=== PATIENT | female | born 1960 | race Two or more races ===

== ENCOUNTER 2018-03-02 21:33 | Emergency (ER) | payer MEDICAID ==
[~2018-03-02] VITALS: Ht 160 cm; Wt 96.8 kg
[~2018-03-02 21:33] MED LIST: MONT10TA9 PO; [UNRECOGNIZED DRUG - CODE] PO
[2018-03-02] MEDS ORDERED: ONDANSETRON ODT 4 MG PO ONE (22:30)
[2018-03-02] MEDS ORDERED: PROMETHAZINE 25 MG/ML, 1ML ONE (22:30)
[2018-03-02] MEDS ORDERED: ONDANSETRON ODT 4 MG ONE (22:30)
[2018-03-02] MEDS ORDERED: PROMETHAZINE 25 MG/ML, 1ML IM ONE (22:30)
[2018-03-02 22:51] LABS: BASOPHILS # (AUTO) 0.06 x10^3/uL (0-0.1); BASOPHILS % (AUTO) 1 % (0-1); EOSINOPHILS # (AUTO) 0.09 x10^3/uL (0-0.4); EOSINOPHILS % (AUTO) 1 % (1-7); LYMPHOCYTES % (AUTO) 16 % (22-44); MD NO; MEAN CORPUSCULAR HEMOGLOBIN 29.9 pg (27.0-34.8); MEAN CORPUSCULAR HGB CONC 33.6 g/dL (32.4-35.8); MEAN CORPUSCULAR VOLUME 88.9 fL (80-100); MEAN PLATELET VOLUME 10.1 fL (7.4-10.4); MONOCYTES % (AUTO) 4 % (2-9); NEUTROPHILS # (AUTO) 8.87 x10^3/uL (1.8-6.8); NEUTROPHILS % (AUTO) 79 % (42-75); PLATELET COUNT 212 x10^3/uL (130-400); RED BLOOD COUNT 4.61 x10^6/uL (3.82-5.3); RED CELL DISTRIBUTION WIDTH 13.9 % (9.6-15.2)
[2018-03-02 23:04] LABS: ALANINE AMINOTRANSFERASE 46 U/L (12-78); ALBUMIN 3.8 g/dL (3.4-5.0); ANION GAP 6 mmol/L (5-15); CALCIUM 8.7 mg/dL (8.5-10.1); CHLORIDE 106 mmol/L (98-107); CREATININE 0.84 mg/dL (0.55-1.02)
[2018-03-02 23:09] LABS: ALKALINE PHOSPHATASE 91 U/L (45-117); BILIRUBIN,TOTAL 0.2 mg/dL (0.2-1.0); TOTAL PROTEIN 8.1 g/dL (6.4-8.2); TROPONIN I < 0.015 ng/mL (0.000-0.045)
[2018-03-02] MEDS ORDERED: KETOROLAC 30 MG/1 ML IM ONE (23:30)
[2018-03-02] MEDS ORDERED: KETOROLAC 30 MG/1 ML ONE (23:31)
[2018-03-02 23:40] LABS: MICROSCOPIC AUTO
[2018-03-02 23:44] LABS: CULTURE INDICATED? NO
[2018-03-03 00:06] VITALS: BP 118/73
== END 2018-03-03 00:10 | disposition home or self-care (01) ==
LOC: ED 23:46
DX: M54.2 Cervicalgia (principal); R11.2 Nausea with vomiting, unspecified; R42 Dizziness and giddiness; J45.909 Unspecified asthma, uncomplicated; E11.9 Type 2 diabetes mellitus without complications; E66.9 Obesity, unspecified
CPT/HCPCS: 36415; 71045; 72040; 80053; 81001; 83690; 84484; 85025; 93005; 96372; 99285; J1885; J2550; Q0162